=== PATIENT | male | born 1960 | race Caucasian/White ===

== ENCOUNTER 2018-06-14 19:55 | Emergency (ER) | payer MEDICAID ==
[~2018-06-14] VITALS: Ht 170.2 cm; Wt 82.6 kg
[~2018-06-14 19:55] MED LIST: ALBU0.63 NEB; ALBU18HF INH; ALLO300T PO; DIPH25CA61 PO; GLIP10TA13 PO; HYDR-3343 PO; HYDR50TA13 PO; INDO25OR; LISI-170 PO; METF500T17 PO; METH500T97 PO; MYCO200S PO; OMAL150V SQ; OXYC-307 PO; PANT40TA3 PO; PRAV20TA2 PO; SULF1TAB23 PO; SULF1TAB24 PO; TRIA40VI IM
[2018-06-14 20:29] LABS: BASOPHILS # (AUTO) 0.04 x10^3/uL (0-0.1); BASOPHILS % (AUTO) 0 % (0-1); EOSINOPHILS # (AUTO) 0.73 x10^3/uL (0-0.4); EOSINOPHILS % (AUTO) 6 % (1-7); LYMPHOCYTES # (AUTO) 1.64 x10^3/uL (1-3.4); LYMPHOCYTES % (AUTO) 14 % (22-44); MD NO; MEAN CORPUSCULAR HEMOGLOBIN 30.7 pg (27.5-34.5); MEAN CORPUSCULAR HGB CONC 33.5 g/dL (33.2-36.2); MEAN CORPUSCULAR VOLUME 91.7 fL (81-97); MEAN PLATELET VOLUME 8.1 fL (7.4-10.4); MONOCYTES # (AUTO) 0.87 x10^3/uL (0.2-0.8); MONOCYTES % (AUTO) 7 % (2-9); NEUTROPHILS # (AUTO) 8.55 x10^3/uL (1.8-6.8); NEUTROPHILS % (AUTO) 72 % (42-75); PLATELET COUNT 265 x10^3/uL (130-400); RED BLOOD COUNT 5.49 x10^6/uL (4.38-5.82); RED CELL DISTRIBUTION WIDTH 14.8 % (9.4-14.8)
[2018-06-14 20:40] LABS: ALANINE AMINOTRANSFERASE 23 U/L (12-78); ALBUMIN 3.6 g/dL (3.4-5.0); ANION GAP 6 mmol/L (5-15); CALCIUM 8.4 mg/dL (8.5-10.1); CHLORIDE 111 mmol/L (98-107); CREATININE 0.81 mg/dL (0.7-1.3)
--- NOTE | 2018-06-14 20:41 | NUR ---
PT RESTING IN BED IN [facility]OSP[facility] GOWN. PT PLACED ON CARDIAC AND VITALS MONITORS. ERP IN TO SEE PT.
[2018-06-14 20:44] LABS: ALKALINE PHOSPHATASE 144 U/L (45-117); BILIRUBIN,TOTAL 0.2 mg/dL (0.2-1.0); TOTAL PROTEIN 7.5 g/dL (6.4-8.2); TROPONIN I < 0.015 ng/mL (0.000-0.045)
--- NOTE | 2018-06-14 21:02 | NUR ---
ALL RESULTS BACK. PT UP FOR RECHECK
[2018-06-14 21:36] VITALS: BP 121/71
== END 2018-06-14 21:42 | disposition home or self-care (01) ==
LOC: ED 21:17
DX: R07.89 Other chest pain (principal); E11.9 Type 2 diabetes mellitus without complications; I11.9 Hypertensive heart disease without heart failure; J45.909 Unspecified asthma, uncomplicated; E78.5 Hyperlipidemia, unspecified; Z88.8 Allergy status to other drugs, medicaments and biological substances; Z88.0 Allergy status to penicillin
CPT/HCPCS: 36415; 71045; 80053; 84484; 85025; 93005; 99284

== ENCOUNTER 2018-08-21 01:27 | Emergency (ER) | payer MEDICAID ==
[~2018-08-21] VITALS: Ht 167.6 cm; Wt 81.6 kg
[2018-08-21 01:30] VITALS: BP 173/91
--- NOTE | 2018-08-21 01:48 | NUR ---
LAINE RIOS IN TO EVAL PT. AND DISCUSS POC.
--- NOTE | 2018-08-21 01:56 | NUR ---
given dc instruction with prescription pt walked to check out
== END 2018-08-21 01:58 | disposition home or self-care (01) ==
LOC: ED 01:36
DX: R06.2 Wheezing (principal); E11.9 Type 2 diabetes mellitus without complications; I10 Essential (primary) hypertension; Z76.0 Encounter for issue of repeat prescription
CPT/HCPCS: 99283

== ENCOUNTER 2018-08-22 00:43 | Emergency (ER) | payer MEDICAID ==
[~2018-08-22] VITALS: Ht 167.6 cm; Wt 80.3 kg
[2018-08-22] MEDS ORDERED: ALBUTEROL/IPRATROPIUM 2.5MG/0.5MG, 3 ML NPPB ONE (01:30)
[2018-08-22 01:49] LABS: BASOPHILS # (AUTO) 0.09 x10^3/uL (0-0.1); BASOPHILS % (AUTO) 1 % (0-1); EOSINOPHILS # (AUTO) 0.69 x10^3/uL (0-0.4); EOSINOPHILS % (AUTO) 5 % (1-7); LYMPHOCYTES # (AUTO) 1.62 x10^3/uL (1-3.4); LYMPHOCYTES % (AUTO) 11 % (22-44); MD NO; MEAN CORPUSCULAR HEMOGLOBIN 30.2 pg (27.5-34.5); MEAN CORPUSCULAR HGB CONC 33.7 g/dL (33.2-36.2); MEAN CORPUSCULAR VOLUME 89.5 fL (81-97); MONOCYTES # (AUTO) 0.98 x10^3/uL (0.2-0.8); MONOCYTES % (AUTO) 7 % (2-9); NEUTROPHILS # (AUTO) 11.02 x10^3/uL (1.8-6.8); NEUTROPHILS % (AUTO) 77 % (42-75); PLATELET COUNT 277 x10^3/uL (130-400); RED BLOOD COUNT 5.74 x10^6/uL (4.38-5.82); RED CELL DISTRIBUTION WIDTH 15.3 % (9.4-14.8)
[2018-08-22 01:53] VITALS: BP 131/76
[2018-08-22 02:00] LABS: ALANINE AMINOTRANSFERASE 28 U/L (12-78); ALBUMIN 3.7 g/dL (3.4-5.0); ANION GAP 8 mmol/L (5-15); CHLORIDE 109 mmol/L (98-107); CREATININE 1.03 mg/dL (0.7-1.3)
[2018-08-22 02:04] LABS: ALKALINE PHOSPHATASE 116 U/L (45-117); BILIRUBIN,TOTAL 0.3 mg/dL (0.2-1.0); TOTAL PROTEIN 7.9 g/dL (6.4-8.2); TROPONIN I < 0.015 ng/mL (0.000-0.045)
== END 2018-08-22 02:58 | disposition home or self-care (01) ==
LOC: ED 01:05
DX: J45.41 Moderate persistent asthma with (acute) exacerbation (principal); J00 Acute nasopharyngitis [common cold]; E11.9 Type 2 diabetes mellitus without complications; I10 Essential (primary) hypertension
CPT/HCPCS: 36415; 71045; 80053; 84484; 85025; 93005; 94640; 99284; J7512; J7620

== ENCOUNTER 2018-08-27 01:38 | Inpatient (IN) | payer MEDICAID ==
[~2018-08-27] VITALS: Ht 170.2 cm; Wt 78.5 kg
[2018-08-27] MEDS ORDERED: ALBUTEROL/IPRATROPIUM 2.5MG/0.5MG, 3 ML ONE (02:11)
[2018-08-27 02:20] LABS: MEAN CORPUSCULAR HEMOGLOBIN 30.1 pg (27.5-34.5); MEAN CORPUSCULAR HGB CONC 32.7 g/dL (33.2-36.2); MEAN PLATELET VOLUME 7.9 fL (7.4-10.4); PLATELET COUNT 277 x10^3/uL (130-400); RED BLOOD COUNT 5.68 x10^6/uL (4.38-5.82)
--- NOTE | 2018-08-27 02:21 | NUR ---
REPORT OF PT FROM MICHELLE DENIS AND ASSUMING CARE OF PT AT THIS TIME.
[2018-08-27] MEDS ORDERED: GUAIFENESIN 200 MG TABLET ONE (02:25)
[2018-08-27] MEDS ORDERED: DIPHENHYDRAMINE 25 MG CAPSULE ONE (02:25)
[2018-08-27] MEDS ORDERED: methylPREDNISolone SOD SUCC 125 MG/2 ML ONE (02:26)
[2018-08-27 02:27] LABS: ALANINE AMINOTRANSFERASE 44 U/L (12-78); ALBUMIN 3.5 g/dL (3.4-5.0); ANION GAP 10 mmol/L (5-15); CALCIUM 8.9 mg/dL (8.5-10.1); CHLORIDE 102 mmol/L (98-107); CREATININE 0.93 mg/dL (0.7-1.3)
[2018-08-27 02:29] LABS: BASOPHILS # (AUTO) 0.08 x10^3/uL (0-0.1); BASOPHILS % (AUTO) 0 % (0-1); EOSINOPHILS # (AUTO) 0.04 x10^3/uL (0-0.4); EOSINOPHILS % (AUTO) 0 % (1-7); LYMPHOCYTES # (AUTO) 1.42 x10^3/uL (1-3.4); LYMPHOCYTES % (AUTO) 6 % (22-44); MD SCAN; MONOCYTES % (AUTO) 3 % (2-9); NEUTROPHILS # (AUTO) 23.01 x10^3/uL (1.8-6.8); NEUTROPHILS % (AUTO) 91 % (42-75)
[2018-08-27] MEDS ORDERED: DIPHENHYDRAMINE 25 MG CAPSULE PO ONE (02:30)
[2018-08-27] MEDS ORDERED: methylPREDNISolone SOD SUCC 125 MG/2 ML IVP ONE (02:30)
[2018-08-27] MEDS ORDERED: SODIUM CHLORIDE FLUSH 10ML SYR IVF ONE (02:30)
[2018-08-27] MEDS ORDERED: GUAIFENESIN 200 MG TABLET PO ONE (02:30)
[2018-08-27] MEDS ORDERED: ALBUTEROL/IPRATROPIUM 2.5MG/0.5MG, 3 ML NPPB SCH (02:30)
[2018-08-27 02:32] LABS: ALKALINE PHOSPHATASE 108 U/L (45-117); BILIRUBIN,TOTAL 0.7 mg/dL (0.2-1.0); TOTAL PROTEIN 8.1 g/dL (6.4-8.2); TROPONIN I < 0.015 ng/mL (0.000-0.045)
--- NOTE | 2018-08-27 02:42 | NUR ---
PT MEDICATED PER JUN. PT RESTING COMFORTABLY IN [facility] AT THIS TIME. AWAITING RT FOR BREATHING TREATMENT.
[2018-08-27] MEDS ORDERED: CEFTRIAXONE PMX 1GM/50ML 50 ML IVPB ONE (03:00)
[2018-08-27] MEDS ORDERED: AZITHROMYCIN 500 MG in SODIUM CHLORIDE 0.9% 250 ML IVPB ONE (03:00)
[2018-08-27] MEDS ORDERED: hydrOXyzine 50MG TABLET PO PRN (04:00)
[2018-08-27] MEDS ORDERED: SODIUM CHLORIDE 0.9% 1,000ML IVBOLUS ONE (04:00)
[2018-08-27] MEDS ORDERED: CEFTRIAXONE PMX 1GM/50ML 50 ML ONE (04:05)
--- NOTE | 2018-08-27 04:12 | NUR ---
bc have been drawn times 2. iv abx initiated per mar.
--- NOTE | 2018-08-27 04:48 | NUR ---
report of pt to heladio manuel. all questions answered. iv [facility]. per heladio manuel, she will hang zithro.
[2018-08-27 05:10] VITALS: BP 119/76
[2018-08-27 06:50] VITALS: BP 124/79
[2018-08-27] MEDS: LEVOFLOXACIN/PMX 750MG/150ML 150 ML IV SCH (08:45)
[2018-08-27] MEDS: INSULIN LISPRO 100 UNITS/ML, PEN SQ-INSULIN SCH ×4 (08:47→21:28)
[2018-08-27] MEDS: LISINOPRIL 20 MG TABLET PO SCH ×2 (08:47→21:29)
[2018-08-27] MEDS: SULFAMETH./TRIMETHOPRIM DS 800MG/160MG TABLET PO SCH (08:47)
[2018-08-27] MEDS: ALLOPURINOL 300 MG TABLET PO SCH (08:47)
[2018-08-27 14:00] VITALS: BP 120/68
[2018-08-27] MEDS ORDERED: LEVOFLOXACIN/PMX 750MG/150ML 150 ML IV SCH (15:00)
[2018-08-27 18:51] VITALS: BP 128/75
[2018-08-27] MEDS: ALBUTEROL/IPRATROPIUM 2.5MG/0.5MG, 3 ML NPPB PRN ×2 (19:43→23:20)
[2018-08-27 20:44] LABS: RAPID INFLUENZA A Negative (Negative); RAPID INFLUENZA B Negative (Negative)
[2018-08-27] MEDS: DIPHENHYDRAMINE 50 MG CAPSULE PO PRN (21:28)
[2018-08-27] MEDS: PRAVASTATIN 20 MG TABLET PO SCH (21:28)
[2018-08-28] MEDS ORDERED: GUAIFENESIN/DM 100-10MG, 5ML UDC PO PRN
[2018-08-28] MEDS ORDERED: GUAIFENESIN 100 MG/5 ML, 10ML UDC ONE (00:07)
[2018-08-28 02:29] VITALS: BP 108/69
[2018-08-28] MEDS: ALBUTEROL/IPRATROPIUM 2.5MG/0.5MG, 3 ML NPPB PRN ×3 (02:56→19:30)
[2018-08-28] MEDS ORDERED: HYDROcodone/APAP 5/325 TABLET ONE (03:04)
[2018-08-28] MEDS ORDERED: HYDROcodone/APAP 5/325 TABLET PO ONE (03:30)
[2018-08-28 05:13] LABS: MEAN CORPUSCULAR HEMOGLOBIN 30.4 pg (27.5-34.5); MEAN CORPUSCULAR HGB CONC 32.5 g/dL (33.2-36.2); MEAN CORPUSCULAR VOLUME 93.3 fL (81-97); MEAN PLATELET VOLUME 8.4 fL (7.4-10.4); PLATELET COUNT 217 x10^3/uL (130-400); RED BLOOD COUNT 5.36 x10^6/uL (4.38-5.82); RED CELL DISTRIBUTION WIDTH 15.3 % (9.4-14.8)
[2018-08-28 05:24] LABS: ANION GAP 8 mmol/L (5-15); CALCIUM 8.9 mg/dL (8.5-10.1); CHLORIDE 105 mmol/L (98-107)
[2018-08-28 05:27] LABS: CREATININE 1.26 mg/dL (0.7-1.3)
[2018-08-28 05:41] LABS: MD YES
[2018-08-28 05:42] LABS: <PLATELET ESTIMATE> ADEQUATE; <PLT MORPHOLOGY> NORMAL PLT MORPH; ANISOCYTOSIS 1+; BAND#(MANUAL) 0.59 x10^3/uL; BANDS%(MANUAL) 2 % (0-7); LYMPH#(MANUAL) 2.64 x10^3/uL (1-3.4); LYMPHS% (MANUAL) 9 % (22-44); MONOS#(MANUAL) 0.59 x10^3/uL (0.3-2.7); MONOS% (MANUAL) 2 % (2-9); SEG#(MANUAL) 25.49 x10^3/uL (1.8-6.8); SEGS% (MANUAL) 87 % (42-75)
[2018-08-28 06:43] VITALS: BP 98/70
[2018-08-28] MEDS: INSULIN LISPRO 100 UNITS/ML, PEN SQ-INSULIN SCH ×4 (07:00→20:59)
[2018-08-28] MEDS: LEVOFLOXACIN/PMX 750MG/150ML 150 ML IV SCH (08:07)
[2018-08-28] MEDS: LISINOPRIL 20 MG TABLET PO SCH ×2 (08:09→20:58)
[2018-08-28] MEDS: SULFAMETH./TRIMETHOPRIM DS 800MG/160MG TABLET PO SCH (08:10)
[2018-08-28] MEDS: ALLOPURINOL 300 MG TABLET PO SCH (08:10)
[2018-08-28 12:49] VITALS: BP 102/62
[2018-08-28] MEDS: BENZONATATE 100 MG CAPSULE PO SCH ×2 (13:36→20:58)
[2018-08-28 19:09] VITALS: BP 113/60
[2018-08-28] MEDS: DIPHENHYDRAMINE 50 MG CAPSULE PO PRN (20:58)
[2018-08-28] MEDS: metFORMIN 500 MG TABLET PO SCH (20:58)
[2018-08-28] MEDS: PRAVASTATIN 20 MG TABLET PO SCH (20:58)
[2018-08-29 00:39] VITALS: BP 97/54
[2018-08-29] MEDS: ALBUTEROL/IPRATROPIUM 2.5MG/0.5MG, 3 ML NPPB PRN ×3 (01:06→21:29)
[2018-08-29] MEDS: BENZONATATE 100 MG CAPSULE PO SCH ×4 (03:51→21:22)
[2018-08-29 05:21] LABS: MEAN CORPUSCULAR HEMOGLOBIN 30.4 pg (27.5-34.5); MEAN CORPUSCULAR HGB CONC 32.8 g/dL (33.2-36.2); MEAN CORPUSCULAR VOLUME 92.7 fL (81-97); MEAN PLATELET VOLUME 8.2 fL (7.4-10.4); PLATELET COUNT 259 x10^3/uL (130-400); RED CELL DISTRIBUTION WIDTH 15.4 % (9.4-14.8)
[2018-08-29 05:35] LABS: ANION GAP 5 mmol/L (5-15); CALCIUM 8.9 mg/dL (8.5-10.1); CHLORIDE 106 mmol/L (98-107)
[2018-08-29 05:36] LABS: CREATININE 0.87 mg/dL (0.7-1.3)
[2018-08-29 06:16] LABS: BASOPHILS # (AUTO) 0.09 x10^3/uL (0-0.1); BASOPHILS % (AUTO) 0 % (0-1); EOSINOPHILS # (AUTO) 0.06 x10^3/uL (0-0.4); EOSINOPHILS % (AUTO) 0 % (1-7); LYMPHOCYTES # (AUTO) 1.34 x10^3/uL (1-3.4); LYMPHOCYTES % (AUTO) 6 % (22-44); MD SCAN; MONOCYTES % (AUTO) 2 % (2-9); NEUTROPHILS # (AUTO) 21.09 x10^3/uL (1.8-6.8); NEUTROPHILS % (AUTO) 92 % (42-75)
[2018-08-29] MEDS: INSULIN LISPRO 100 UNITS/ML, PEN SQ-INSULIN SCH ×4 (07:00→21:22)
[2018-08-29 09:00] VITALS: BP 112/61
[2018-08-29] MEDS: SULFAMETH./TRIMETHOPRIM DS 800MG/160MG TABLET PO SCH (09:47)
[2018-08-29] MEDS: LISINOPRIL 20 MG TABLET PO SCH ×2 (09:47→21:22)
[2018-08-29] MEDS: metFORMIN 500 MG TABLET PO SCH ×2 (09:47→21:21)
[2018-08-29] MEDS: ALLOPURINOL 300 MG TABLET PO SCH (09:47)
[2018-08-29] MEDS: LEVOFLOXACIN/PMX 750MG/150ML 150 ML IV SCH (09:47)
[2018-08-29 13:14] VITALS: BP_SYST 119; BP_SYST 153; BP_DIAS 70; BP_DIAS 81
[2018-08-29 18:30] VITALS: BP 132/63
[2018-08-29 18:50] VITALS: BP 128/78
[2018-08-29] MEDS: PRAVASTATIN 20 MG TABLET PO SCH (21:22)
[2018-08-30 01:45] VITALS: BP 127/80
[2018-08-30 05:58] LABS: MEAN CORPUSCULAR HEMOGLOBIN 30.4 pg (27.5-34.5); MEAN CORPUSCULAR VOLUME 92.2 fL (81-97); MEAN PLATELET VOLUME 8.5 fL (7.4-10.4); PLATELET COUNT 253 x10^3/uL (130-400); RED CELL DISTRIBUTION WIDTH 15.2 % (9.4-14.8)
[2018-08-30] MEDS: INSULIN LISPRO 100 UNITS/ML, PEN SQ-INSULIN SCH ×3 (07:00→16:00)
[2018-08-30] MEDS: LEVOFLOXACIN/PMX 750MG/150ML 150 ML IV SCH (07:27)
[2018-08-30 07:35] VITALS: BP 128/76
[2018-08-30] MEDS: SULFAMETH./TRIMETHOPRIM DS 800MG/160MG TABLET PO SCH (08:44)
[2018-08-30] MEDS: ALLOPURINOL 300 MG TABLET PO SCH (08:44)
[2018-08-30] MEDS: metFORMIN 500 MG TABLET PO SCH (08:44)
[2018-08-30] MEDS: BENZONATATE 100 MG CAPSULE PO SCH ×2 (08:44→16:00)
[2018-08-30] MEDS: LISINOPRIL 20 MG TABLET PO SCH (08:44)
[2018-08-30 08:55] LABS: BASOPHILS # (AUTO) 0.08 x10^3/uL (0-0.1); BASOPHILS % (AUTO) 0 % (0-1); EOSINOPHILS # (AUTO) 0.02 x10^3/uL (0-0.4); EOSINOPHILS % (AUTO) 0 % (1-7); LYMPHOCYTES # (AUTO) 1.16 x10^3/uL (1-3.4); LYMPHOCYTES % (AUTO) 6 % (22-44); MD SCAN; MONOCYTES # (AUTO) 0.92 x10^3/uL (0.2-0.8); MONOCYTES % (AUTO) 5 % (2-9); NEUTROPHILS # (AUTO) 17.07 x10^3/uL (1.8-6.8); NEUTROPHILS % (AUTO) 89 % (42-75)
[2018-08-30 13:25] VITALS: BP 123/75
[2018-08-30] MEDS ORDERED: PRED10TA PO (14:01)
[2018-08-30] MEDS ORDERED: IPRA3AMP30 NPPB (14:01)
[2018-08-30] MEDS ORDERED: NEBU-107 INH (14:01)
[2018-08-30] MEDS ORDERED: BENZ-17 PO (14:01)
[2018-08-30] MEDS ORDERED: LEVO750T26 PO (14:01)
[2018-08-30] MEDS ORDERED: GUAI-103 PO (14:02)
== END 2018-08-30 16:39 | disposition home or self-care (01) | DRG 871 ==
LOC: ED 02:39 → EDIP 02:59 → 4WST 04:55 → DCLOUNGE 08-30 16:18
PROVIDERS: ADMIT Internal Medicine; ATTEND Internal Medicine
DX: A41.9 Sepsis, unspecified organism (principal); J15.9 Unspecified bacterial pneumonia; J96.01 Acute respiratory failure with hypoxia; G06.2 Extradural and subdural abscess, unspecified; E87.1 Hypo-osmolality and hyponatremia; J44.0 Chronic obstructive pulmonary disease with (acute) lower respiratory infection; J45.41 Moderate persistent asthma with (acute) exacerbation; E11.9 Type 2 diabetes mellitus without complications; E78.5 Hyperlipidemia, unspecified; F12.90 Cannabis use, unspecified, uncomplicated; I10 Essential (primary) hypertension; L20.9 Atopic dermatitis, unspecified; M10.9 Gout, unspecified; Z79.84 Long term (current) use of oral hypoglycemic drugs; Z79.899 Other long term (current) drug therapy; Z86.61 Personal history of infections of the central nervous system; Z87.11 Personal history of peptic ulcer disease
CPT/HCPCS: 36415; 84145; 87400; 99285; J7620; 71045; 80048; 80053; 82962; 83880; 84484; 85025; 87040; 93005; 94640; 96374; 96375; G0378; J0696; J1956; J1815; J2930; J7030; J7512; Q0163

== ENCOUNTER 2018-12-06 21:45 | Emergency (ER) | payer MEDICAID ==
[~2018-12-06] VITALS: Ht 167.6 cm; Wt 79.7 kg
[~2018-12-06 21:45] MED LIST changes: +BENZ-17 PO; +GUAI-103 PO; +IPRA3AMP30 NPPB; +LEVO750T26 PO; +NEBU-107 INH; +PRED10TA PO
[2018-12-06] MEDS ORDERED: OXYcodone 5 MG/5 ML ORAL.SOL UDC PO ONE (22:30)
[2018-12-06] MEDS ORDERED: OXYcodone/APAP 5/325MG TABLET ONE (23:01)
[2018-12-06] MEDS ORDERED: OXYcodone 5 MG/5 ML ORAL.SOL UDC ONE (23:04)
[2018-12-06 23:15] VITALS: BP 122/68
--- NOTE | 2018-12-06 23:26 | NUR ---
PT. VERY UPSET WHILE THIS RN WHILE GOING OVER D/C INSTRUCITONS. PT. STATING "YOU WILL HAVE A LAWSUIT OVER THIS, THAT PAIN MED IS ONLY GOING TO LAST ME 8 HOURS AND IF YOU CAN'T GET ME SOMETHING TO TAKE HOME WITH MY I AM GOING TO END UP RIGHT BACK IN HERE FOR MORE PAIN MEDS." "[facility] WILL PAY ONE WAY OR ANOTHER, I WILL NOT NAME YOU DIRECTLY IN MY LAW SUIT BUT [facility] WILL BE NAMED." PT. WAS ABLE TO FULLY DRESS SELF AND AMBULATE TO D/C DESK WITH STEADY GAIT. PT. REPORTS HE STILL HAS HIS INSENTIVE SPIROMETER AT HOME AND WILL CONTINUE USING IT "I WILL RUN OUT OF MY [employer] BY THE END OF THE WEEKEND AND I GUARANTEE YOU I WILL BE BACK HERE!"
== END 2018-12-06 23:33 ==
LOC: ED 23:27
DX: S29.011A Strain of muscle and tendon of front wall of thorax, initial encounter (principal); E11.9 Type 2 diabetes mellitus without complications; I10 Essential (primary) hypertension; J44.9 Chronic obstructive pulmonary disease, unspecified; E78.5 Hyperlipidemia, unspecified; M10.9 Gout, unspecified; X58.XXXA Exposure to other specified factors, initial encounter; Y93.89 Activity, other specified; Y92.89 Other specified places as the place of occurrence of the external cause; Y99.8 Other external cause status
CPT/HCPCS: 99283

== ENCOUNTER 2020-08-22 00:32 | Emergency (ER) | payer MEDICAID ==
[~2020-08-22] VITALS: Ht 167.6 cm; Wt 71.3 kg
[~2020-08-22 00:32] MED LIST changes: -HYDR50TA13 PO; +HYDR50TA99 PO; -OXYC-307 PO; +OXYC-380 PO; +SULF-23 PO; -SULF1TAB24 PO
[2020-08-22 00:41] VITALS: BP 142/81
--- NOTE | 2020-08-22 01:07 | NUR ---
PT HAS VARIOUS COMPLAINT. L HIP PAIN AND LEG PAIN CELLULITIS ON LEFT ANKLE HISORRY OF R GROIN PAIN AND INGUINAL HERNIA ALL CHRONIC PROBLEMS. THE HIP PAIN IS ONLY WHEN PT IS STANDING. PROVIDER AT BEDSIDE. WATING FOR ORDERS TO BE PLACED.
--- NOTE | 2020-08-22 02:05 | NUR ---
PT ELOPED AFTER DC WITHOUT DISCHARGE INSTRUCTIONS.
== END 2020-08-22 02:18 | disposition home or self-care (01) ==
LOC: ED 02:00
DX: M25.552 Pain in left hip (principal); I10 Essential (primary) hypertension; E11.9 Type 2 diabetes mellitus without complications; J44.9 Chronic obstructive pulmonary disease, unspecified; E78.5 Hyperlipidemia, unspecified; M10.9 Gout, unspecified
CPT/HCPCS: 99283

== ENCOUNTER 2020-08-28 11:50 | Emergency (ER) | payer MEDICAID ==
[~2020-08-28] VITALS: Ht 167.6 cm; Wt 70.1 kg
[2020-08-28 13:20] LABS: BASOPHILS % (AUTO) 0 % (0-1); EOSINOPHILS % (AUTO) 4 % (1-7); LYMPHOCYTES % (AUTO) 12 % (22-44); MEAN CORPUSCULAR HEMOGLOBIN 32.9 pg (27.5-34.5); MEAN PLATELET VOLUME 7.8 fL (7.4-10.4); MONOCYTES % (AUTO) 7 % (2-9); NEUTROPHILS % (AUTO) 77 % (42-75); PLATELET COUNT 231 x10^3/uL (130-400); RED CELL DISTRIBUTION WIDTH 14.5 % (9.4-14.8)
[2020-08-28 13:24] LABS: ALBUMIN 3.9 g/dL (3.4-5.0); ANION GAP 4 mmol/L (5-15); CALCIUM 8.9 mg/dL (8.5-10.1); CHLORIDE 107 mmol/L (98-107)
[2020-08-28 13:28] LABS: ALANINE AMINOTRANSFERASE 32 U/L (12-78); ALKALINE PHOSPHATASE 99 U/L (45-117); BILIRUBIN,TOTAL 0.4 mg/dL (0.2-1.0); CREATININE 0.89 mg/dL (0.7-1.3); TOTAL PROTEIN 7.5 g/dL (6.4-8.2)
[2020-08-28 13:30] LABS: MD NO
--- NOTE | 2020-08-28 14:07 | NUR ---
PATIENT ARRIVES WITH NECK PAIN, HERNIA PROBLEM BRINGING HIM IN. HE HAS A HISTORY ASTHMA, ATOPIC DERMATITIS, BACK SURGERIES, SINSUS SUGERIES.
--- NOTE | 2020-08-28 14:13 | NUR ---
PATIENT IS UPSET ABOUT HIS MEDICAL SITUATION. HE HAS ENDLESS STORIES ABOUT WEAKNESS FOR YEARS, AND CAN'T POOP AND DIFFICULTY WITH GI TRACT. HE GOES ON A LOT ABOUT VARIOUS MEDICATIONS, HE STATES HE TAKES IBUPROVEN DAILY, BACTRIM DAILY.
[2020-08-28 15:12] VITALS: BP 114/55
--- NOTE | 2020-08-28 15:22 | NUR ---
CARE FOR DC ONLY PROVIDED. PT LAYING ON GURNEY. NO ACUTE DISTRESS NOTED. NO IV TO DC. REVIEWED DC INSTRUCTIONS WITH PT. UNDERSTANDING VERBALIZED. PT TO LEAVE AMB. PTS MOTHER AT BEDSIDE.
== END 2020-08-28 15:25 | disposition home or self-care (01) ==
LOC: ED 12:26
DX: S16.1XXA Strain of muscle, fascia and tendon at neck level, initial encounter (principal); M54.42 Lumbago with sciatica, left side; K43.2 Incisional hernia without obstruction or gangrene; I10 Essential (primary) hypertension; E11.9 Type 2 diabetes mellitus without complications; J44.9 Chronic obstructive pulmonary disease, unspecified; E78.5 Hyperlipidemia, unspecified; F17.200 Nicotine dependence, unspecified, uncomplicated; X58.XXXA Exposure to other specified factors, initial encounter; Y93.89 Activity, other specified; Y92.89 Other specified places as the place of occurrence of the external cause; Y99.8 Other external cause status
CPT/HCPCS: 36415; 80053; 85025; 93005; 99284

== ENCOUNTER → 2020-10-07 | Outpatient (CLI) | payer MEDICAID | END | disposition home or self-care (01) | LOC: CFH 10:56 | PROVIDERS: ATTEND Family Medicine | DX: M50.11 Cervical disc disorder with radiculopathy, high cervical region (principal) | CPT/HCPCS: 72141 ==

== ENCOUNTER → 2020-10-26 | Outpatient (CLI) | payer MEDICAID | END | disposition home or self-care (01) | LOC: CFH 10:41 | PROVIDERS: ATTEND Nurse Practitioner | DX: S13.140A Subluxation of C3/C4 cervical vertebrae, initial encounter (principal); X58.XXXA Exposure to other specified factors, initial encounter; Y93.89 Activity, other specified; Y92.89 Other specified places as the place of occurrence of the external cause; Y99.8 Other external cause status | CPT/HCPCS: 72050 ==

== ENCOUNTER 2020-12-08 09:24 | Outpatient (CLI) | payer MEDICAID ==
[~2020-12-08 09:24] MED LIST changes: -OXYC-380 PO; +OXYC-501 PO
== END 2020-12-08 23:59 | disposition home or self-care (01) ==
LOC: CFH 09:24
PROVIDERS: ATTEND Nurse Practitioner
DX: M47.812 Spondylosis without myelopathy or radiculopathy, cervical region (principal); M48.03 Spinal stenosis, cervicothoracic region
CPT/HCPCS: 72125